=== PATIENT | female | born 1980 | race Caucasian/White ===

== ENCOUNTER 2023-05-16 05:01 | Emergency (ER) | payer SELFPAY ==
[~2023-05-16] VITALS: Ht 152.4 cm; Wt 63.5 kg
[2023-05-16 05:09] VITALS: BP_SYST 88; PULSE 83; RESP 20; TEMP 97.4; O2SAT 99
[2023-05-16] MEDS ORDERED: NACL 0.9% 1,000 ML IV ONE (05:15)
[2023-05-16] MEDS ORDERED: KETOROLAC TROMETHAMINE 30 MG VIAL IVP ONE (05:45)
[2023-05-16 06:14] VITALS: BP_SYST 121; PULSE 65; RESP 20; TEMP 97.1; O2SAT 100
== END 2023-05-16 06:17 ==
LOC: SED 05:01
DX: Z02.89 Encounter for other administrative examinations (principal); R55 Syncope and collapse; R51.9 Headache, unspecified; I95.9 Hypotension, unspecified; I10 Essential (primary) hypertension; Z79.899 Other long term (current) drug therapy
CPT/HCPCS: 99283; 96374; 93005; J1885